=== PATIENT | male | born 1995 | race Caucasian/White ===

== ENCOUNTER 2021-01-23 03:56 | Emergency (ER) | payer SELFPAY ==
[~2021-01-23] VITALS: Ht 170 cm; Wt 136.0 kg
[2021-01-23 04:26] LABS: BASOPHILS # (AUTO) 0.1 10^3/uL (0.0-0.1); BASOPHILS % (AUTO) 1 % (0-10); EOSINOPHILS # (AUTO) 0.1 10^3/uL (0.0-0.3); EOSINOPHILS % (AUTO) 1 % (0-10); HEMATOCRIT 43 % (40-54); HEMOGLOBIN 14.8 g/dL (13.3-17.7); LYMPHOCYTES # (AUTO) 4.2 10^3/uL (1.0-4.0); LYMPHOCYTES % (AUTO) 34 % (12-44); MEAN CORPUSCULAR HEMOGLOBIN 31 pg (25-34); MEAN CORPUSCULAR HGB CONC 34 g/dL (32-36); MEAN CORPUSCULAR VOLUME 89 fL (80-99); MEAN PLATELET VOLUME 10.5 fL (9.0-12.2); MONOCYTES # (AUTO) 0.6 10^3/uL (0.0-1.0); MONOCYTES % (AUTO) 5 % (0-12); NEUTROPHILS # (AUTO) 7.2 10^3/uL (1.8-7.8); NEUTROPHILS % (AUTO) 59 % (42-75); PLATELET COUNT 306 10^3/uL (130-400); WHITE BLOOD COUNT 12.2 10^3/uL (4.3-11.0)
[2021-01-23 04:31] LABS: ALBUMIN 4.6 GM/DL (3.2-4.5); CHLORIDE 105 MMOL/L (98-107); POTASSIUM 3.4 MMOL/L (3.6-5.0); SODIUM 141 MMOL/L (135-145)
[2021-01-23 04:32] LABS: CALCIUM 8.9 MG/DL (8.5-10.1)
[2021-01-23 04:34] LABS: GLUCOSE 99 MG/DL (70-105); TOTAL PROTEIN 7.6 GM/DL (6.4-8.2)
[2021-01-23 04:35] LABS: BILIRUBIN,TOTAL 0.8 MG/DL (0.1-1.0); CARBON DIOXIDE 21 MMOL/L (21-32)
[2021-01-23 04:37] LABS: ALKALINE PHOSPHATASE 61 U/L (40-136); CREATININE SERUM 0.96 MG/DL (0.60-1.30); GFR ESTIMATED > 60
[2021-01-23 04:38] LABS: BUN/CREATININE RATIO 7
[2021-01-23 04:40] LABS: ALANINE AMINOTRANSFERASE 31 U/L (0-55)
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
[2021-01-23 05:24] LABS: BILIRUBIN,URINE NEGATIVE (NEGATIVE); CLARITY,URINE CLEAR; COLOR,URINE YELLOW; GLUCOSE, URINE (UA) NEGATIVE (NEGATIVE); KETONES,URINE NEGATIVE (NEGATIVE); LEUKOCYTE ESTERASE ,URINE NEGATIVE (NEGATIVE); NITRITE,URINE NEGATIVE (NEGATIVE); PROTEIN,URINE NEGATIVE (NEGATIVE)
[2021-01-23 05:35] LABS: BACTERIA,URINE NEGATIVE /HPF; RBC,URINE RARE /HPF
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
[2021-01-23 05:55] VITALS: BP 115/62
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
== END 2021-01-23 05:55 | disposition home or self-care (01) ==
LOC: ER 03:58
DX: S06.0X9A Concussion with loss of consciousness of unspecified duration, initial encounter (principal); S00.81XA Abrasion of other part of head, initial encounter; V29.9XXA Motorcycle rider (driver) (passenger) injured in unspecified traffic accident, initial encounter
CPT/HCPCS: 70450; 71045; 72125; 80053; 81000; 85025; 99284; G0480; 36415; 80320

== ENCOUNTER 2021-01-27 19:56 | Emergency (ER) | payer OTHER ==
[~2021-01-27] VITALS: Ht 167.7 cm; Wt 117.9 kg
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
[2021-01-27 21:42] VITALS: BP 146/82
== END 2021-01-27 21:42 | disposition home or self-care (01) ==
LOC: EDUNIT# 19:56 → ER FS 19:57
DX: S43.402A Unspecified sprain of left shoulder joint, initial encounter (principal); R42 Dizziness and giddiness; F07.81 Postconcussional syndrome; F17.210 Nicotine dependence, cigarettes, uncomplicated; V89.2XXA Person injured in unspecified motor-vehicle accident, traffic, initial encounter
CPT/HCPCS: 70450; 71046

== ENCOUNTER 2021-04-18 22:21 | Emergency (ER) | payer SELFPAY ==
[~2021-04-18] VITALS: Ht 167.7 cm; Wt 106.6 kg
[2021-04-18 22:30] VITALS: BP 144/71
--- NOTE | 2021-04-18 23:20 | ED Chest Pain ---
General Chief Complaint: Chest Pain Stated Complaint: CHEST PAIN | LEFT HAND NUMBNESS | DIZZINESS Nursing Triage Note: PT AMBULATE TO ROOM FS01 WITH C/O CHEST PAIN. 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 Patient had an episode 30 minutes prior to arrival on the second episode lasting proximately 30 minutes. Patient states he started to the job yesterday and was working in the heat throughout the day. Denies shortness of breath nausea sweats. Denies headache blurred vision dizziness lightheadedness. States he was lifting working more than he was used to. No other symptoms or complaints. Timing/Duration: 1/2 hour Severity/Quality: moderate, sharp, stabbing Location: other Radiation: no radiation Activities at Onset: other (Laundry) Prior CP/Workup: no prior chest pain Modifying Factors: improves with movement, improves with other Associated Symptoms: denies symptoms Allergies and Home Medications Allergies Coded Allergies: No Known Drug Allergies (Unverified , 01/27/21) Patient Home Medication List Home Medication List Reviewed: Yes Review of Systems Review of Systems Constitutional: see HPI EENTM: See HPI Respiratory: See HPI Cardiovascular: See HPI Gastrointestinal: See HPI Genitourinary: See HPI Musculoskeletal: see HPI Skin: see HPI Psychiatric/Neurological: See HPI Endocrine: See HPI Hematologic/Lymphatic: See HPI Past Qupqklu-Pprank-Yotdbt Hx Patient Social History Tobacco Use?: Yes Tobacco type used: Cigarettes Smoking Status: Current Everyday Smoker Use of E-Cig and/or Vaping dev: No Substance use?: No Alcohol Use?: Yes Pt feels they are or have been: No Seasonal Allergies Seasonal Allergies: No Past Medical History Surgeries: No Respiratory: No Cardiac: No Neurological: No Genitourinary: No Gastrointestinal: No Musculoskeletal: No Endocrine: No HEENT: No Cancer: No Psychosocial: No Integumentary: No Blood Disorders: No Physical Exam Vital Signs Vital Signs - First Documented 04/18/21 22:30 Temp 36.5 Pulse 92 Resp 18 B/P (MAP) 144/71 (95) O2 Delivery Room Air Capillary Refill : Less Than 3 Seconds Height, Weight, BMI Height: '" Weight: lbs. oz. kg; 37.00 BMI Method: General Appearance: No Apparent Distress HEENT: PERRL/EOMI Neck: Supple Respiratory: Chest Non Tender, Lungs Clear, Normal Breath Sounds Cardiovascular: Regular Rate, Rhythm Extremity: Normal Inspection, No Calf Tenderness Neurologic/Psychiatric: Alert, Oriented x3, No Motor/Sensory Deficits Focused Exam Sepsis Stage: Ruled Out Progress/Results/Core Measures Results/Orders Vital Signs/I&O 04/18/21 04/18/21 22:30 22:33 Temp 36.5 Pulse 92 Resp 18 B/P (MAP) 144/71 (95) O2 Delivery Room Air Room Air Blood Pressure Mean: 95 Departure Communication (Admissions) EKG: Sinus arrhythmia, rate 73, no acute ST-T wave changes, normal VA, QTc QRS intervals Atypical chest pain resolved prior to ED arrival. Suspect combination of heat exposure and musculoskeletal strain. Recommendations are for rest supportive care with PCP follow-up. Impression Primary Impression: Chest wall pain Disposition: 01 HOME, SELF-CARE Condition: Stable Departure-Patient Inst. Referrals: NO,LOCAL PHYSICIAN (PCP/Family) Primary Care Physician Patient Instructions: Chest Pain Add. Discharge Instructions: Please increase fluids, avoid alcohol caffeine beverages and take frequent breaks during excessive heat exposure periods at work. Follow-up with your PCP in 2 to 3 days for reevaluation if symptoms persist. Return to the ED if new or worsening symptoms All discharge instructions reviewed with patient and/or family. Voiced understanding. LONDON BOLIVAR DO Apr 18, 2021 23:20
== END 2021-04-18 23:25 | disposition home or self-care (01) ==
LOC: EDUNIT# 22:21 → ER FS 22:22
DX: R07.89 Other chest pain (principal); F17.210 Nicotine dependence, cigarettes, uncomplicated
CPT/HCPCS: 99285